=== PATIENT | female | born 1990 | race Caucasian/White ===

== ENCOUNTER 2017-04-18 09:45 | Inpatient (IN) | payer OTHER ==
[~2017-04-18 09:45] MED LIST: Docusate Sod/Senna PO; PERC5TAB12 PO; PREN1TAB30
--- NOTE | 2017-06-17 19:44 | HHI.HP ---
HPI Chief Complaint scheduled elective repeat at term; pre-op H&P, surgery scheduled Date Seen: Jun 17, 2017 Time Seen: 19:30 Travel History International Travel<30 Days: No Contact w/Intl Traveler<30Days: No Known Affected Area: No History of Present Illness HPI 27 yo with LMP1, EDC 06/25/17 by LMP c/w 18 week sonogram, will present for scheduled repeat delivery due to history of . Pt' s has been uncomplicated, fetus is male. Patient has a significant past history of prior complicated by infant with achondroplasia, her daughter "Daphney" who was delivered via after arrest of descent after >2 hours of pushing, born July 2014. Patient has no major complaints, minor pelvic pressure and cramps, no vaginal bleeding, no leakage of fluid, no regular contractions, endorses good movement, pain 1/10 minor pelvic pressure. Para: 1 : 1 Last Menstrual Period: Sep 18, 2016 Miscarriage: 2 : 0 History Past Medical History Narrative Medical denies Obstetric History Obstetric History G1 = SAB at 8 wks, 02/2013 G2 = SAB at 11 wks 09/2013 G3 = FT CD arrest of descent, 7#11oz female "Daphney", achondroplasia, born 2013 G4 = current, male, for repeat Past Surgical History Narrative Surgical primary low transverse 07/2014 tonsillectomy as child Family History Narrative Family History prior child born with achondroplasia; no known family history Social History Alcohol Use: No Tobacco Use: No Substance Abuse: No Allergies-Medications (Allergen,Severity, Reaction): Coded Allergies: Sulfa (Verified Allergy, Severe, UNKNOWN, 08/05/14) Review of Systems General / Constitutional: Weight Gain, No: Fever, Chills, Other Eyes: No: Diploplia, Blurred Vision, Visual changes, Pain, Photophobia HENT: No: Headaches, Vertigo, Lightheadedness Cardiovascular: No: Irregular Rhythm, Chest Pain or Discomfort, Palpitations, Tachycardia, Syncope, Varicosities, Edema, Cyanosis Respiratory: No: Cough, Short of Breath, Other Gastrointestinal: No: Nausea, Vomiting, Diarrhea Genitourinary: Pelvic Pain (mild pressure related to ), No: Decreased Urinary Output, Oliguria Musculoskeletal: No: Limited ROM, Weakness, Cramping, Edema, Pain Skin: No Rash, No Itching, No Dryness, No Lumps, No Change in Pigmentation, No Change in Nails, No Alopecia, No Lesions Neurologic: No: Weakness, Dizziness, Syncope, Focal Abnormalities, Coordination Problem, Headache, Slurred Speech, Seizures Psychiatric: No: Depression, Suicidal Ideations, Homicidal Ideation Endocrine: No: Heat Intolerance, Cold Intolerance, Polydipsia, Polyuria, Other Physical Exam Narrative GENERAL: Well-nourished, well-developed patient. SKIN: Warm and dry. HEAD: Normocephalic and atraumatic. EYES: No scleral icterus. No injection or drainage. ENT: No nasal drainage noted. Mucous membranes pink. Airway patent. NECK: Supple, trachea midline. No JVD. CARDIOVASCULAR: Regular rate and rhythm without murmurs, gallops, or rubs. RESPIRATORY: Breath sounds equal bilaterally. No accessory muscle use. BREASTS: deferred. ABDOMEN/GI: Abdomen soft, non-tender, bowel sounds present, no rebound, no guarding Gravid to [39] weeks size Fundal Height: [39] GENITOURINARY: deferred Presentation: [vtx] Membranes: [intact] Uterine Contractions: [irregular] FHT's: +FCA in office 150s EXTREMITIES: No cyanosis or edema. BACK: Nontender without obvious deformity. No CVA tenderness. NEUROLOGICAL: Awake and alert. Motor and sensory grossly within normal limits. Five out of 5 muscle strength in all muscle groups. Normal speech. 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
[2017-06-18] VITALS (27 sets, daily range): BP systolic 96–113; BP diastolic 59–75; PULSE 18–98; RESP 17–18; TEMP 97.3–98.2; O2SAT 100
[2017-06-18] MEDS ORDERED: CITRIC ACID-SODIUM CITRATE LIQ 30 ML UDC PO SCH (06:15)
[2017-06-18] MEDS ORDERED: ceFAZolin 2 GM PREMIX 50 ML IV SCH (06:15)
[2017-06-18] MEDS ORDERED: LACTATED RINGER'S 1000 ML IV SCH (06:15)
[2017-06-18] MEDS ORDERED: LACTATED RINGER'S 1000 ML IV ONE (06:15)
[2017-06-18 06:49] LABS: BLOOD, URINE NEG (NEG); GLUCOSE,URINE NEG (NEG); KETONE, URINE NEG (NEG); NITRITE,URINE NEG (NEG); SQUAMOUS EPITHELIAL CELL URINE 1 /hpf (0-5); URINE COLOR YELLOW (YELLW/STRAW)
[2017-06-18 06:55] LABS: COMMENT (UR) CULT NOT INDICATED; CULTURE IF INDICATED CULT NOT INDICATED
[2017-06-18] MEDS ORDERED: OXYTOCIN 10 UNIT/ML AMP ONE (07:06)
--- NOTE | 2017-06-18 08:15 | PD.OB.DELI ---
Procedure Note Section Procedure Pre Op Diagnosis: (1) Labor and delivery indication for care or intervention (2) History of delivery (3) Rh negative status during Post Op Diagnosis: (1) S/P repeat low transverse (2) Labor and delivery indication for care or intervention (3) History of delivery (4) Rh negative status during Performed by Vilma Lepe Procedure: Repeat Low Transverse Sec Indication for delivery: Desired elective repeat Informed consent obtained: For anesthesia, For procedure Confirmed correct: Patient, Procedure, Site, Time-out taken Anesthesia: Spinal Medication prior to procedure: As documented in eMAR Monitoring during procedure: Blood pressure monitoring, 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, Pulse oximetry Urinary catheter: Inserted using sterile technique, To dependent drainage, ml urine output (700) Sterile preparation: Duraprep, In usual fashion, With drapes to expose affected area Position: Supine with wedge to right side Operative Features Skin Incision: Pfannenstiel Uterine Incision: Low transverse w/knife / scissors Membranes Ruptured: Artificially, Amount of liquid (copious), Appearance of fluid (clear) Presentation: Vertex Delivery of : Uneventful Infant: Male One Minute : 8 Five Minute : 8 Weight: pending Status of : Viable, Cord blood, Nursery present Placenta delivered: Intact Medications: Antibiotics (Ancef 2g IV preop) Estimated blood loss: 700 mL Procedure tolerated: Well Maternal Condition: Stable Condition: Stable ( with good cry and tone but O2 sat lower than expected, being taken to NICU for monitoring/transition) Procedure in detail see dictated op note for full details Vilma Lepe MD Jun 18, 2017 08:15
[2017-06-18] MEDS ORDERED: ONDANSETRON HCL 4 MG/2 ML VIAL ONE (08:20)
[2017-06-18] MEDS ORDERED: MORPHINE SULFATE PF 10 MG/10 ML VIAL ONE (08:20)
[2017-06-18] MEDS ORDERED: OXYTOCIN 30 UNITS-500ML PREMIX 500 ML IV ONE (08:30)
[2017-06-18] MEDS ORDERED: ZOLPIDEM TARTRATE 5 MG TAB PO PRN (08:30)
[2017-06-18] MEDS ORDERED: ACETAMINOPHEN 325 MG TAB PO PRN (08:30)
[2017-06-18] MEDS ORDERED: ONDANSETRON HCL 4 MG/2 ML VIAL IV PUSH PRN (08:30)
[2017-06-18] MEDS ORDERED: SODIUM CHLORIDE 0.9% FLUSH 10 ML FLUSH IV FLUSH PRN (08:30)
[2017-06-18] MEDS ORDERED: ACETAMINOPHEN 1000 MG/100 ML VIAL IV ONE ×2 (08:30→08:40)
[2017-06-18] MEDS ORDERED: KETOROLAC TROMETHAMINE 60 MG/2 ML (IM) VIAL IM PRN (08:30)
[2017-06-18] MEDS ORDERED: SIMETHICONE 80 MG CHEWABLE TAB PO PRN (08:30)
[2017-06-18] MEDS ORDERED: oxyCODONE/ACETAMINOPHEN 5 MG/325 MG TAB PO PRN (08:30)
[2017-06-18 09:50] LABS: AUTOMATED NEUTROPHIL # 6.3 TH/MM3 (1.8-7.7); BASOPHIL % 0.5 % (0.0-2.0); EOSINOPHIL # 0.1 TH/MM3 (0-0.4); EOSINOPHIL % 0.6 % (0.0-4.0); HEMATOCRIT 30.6 % (35.0-46.0); LYMPH % 18.2 % (9.0-44.0); LYMPHOCYTE # 1.5 TH/MM3 (1.0-4.8); MEAN CELL VOLUME 89.1 FL (80.0-100.0); MEAN CORPUSCULAR HEMOGLOBIN 29.6 PG (27.0-34.0); MEAN CORPUSCULAR HGB CONC 33.2 % (32.0-36.0); MONO % 6.1 % (0.0-8.0); NEUT % 74.6 % (16.0-70.0); RED BLOOD COUNT 3.44 MIL/MM3 (4.00-5.30); WHITE BLOOD COUNT 8.5 TH/MM3 (4.0-11.0)
[2017-06-18 09:51] LABS: HEMO FLAGS AUTO DIFF; PLATELET COUNT 158 TH/MM3 (150-450)
[2017-06-18 09:56] LABS: PLATELET ESTIMATE SMEAR NORMAL (NORMAL); PLATELET MORPHOLOGY CLUMPED (NORMAL); SCAN/DIFF AUTO DIFF CONFIRMED
[2017-06-18] MEDS ORDERED: EPIDURAL-DO NOT ADMINISTER ANTICOAGULANTS PRN (10:15)
[2017-06-18] MEDS ORDERED: EPIDURAL-NALOXONE HCL 0.4 MG/ML AMP IV PRN (10:15)
[2017-06-18] MEDS ORDERED: EPIDURAL-DIPHENHYDRAMINE HCL 50 MG CAP PO PRN (10:15)
[2017-06-18] MEDS ORDERED: EPIDURAL-DIPHENHYDRAMINE HCL 50 MG/ML VIAL IV PUSH PRN (10:15)
[2017-06-18] MEDS ORDERED: EPIDURAL-NO SYSTEMIC NARCOTICS PRN (10:15)
[2017-06-18] MEDS ORDERED: LACTATED RINGER'S 1000 ML INJ 1,000 ML IV SCH (13:21)
[2017-06-18] MEDS ORDERED: OXYTOCIN 30 UNITS-500ML PREMIX 500 ML IV PRN (18:30)
[2017-06-18] MEDS: oxyCODONE/ACETAMINOPHEN 5 MG/325 MG TAB PO PRN (19:22)
[2017-06-18] MEDS: IBUPROFEN 600 MG TAB PO PRN (19:23)
[2017-06-18] MEDS: DOCUSATE SODIUM 50 MG/SENNA 8.6 MG TAB PO SCH (20:58)
[2017-06-18] MEDS: SODIUM CHLORIDE 0.9% FLUSH 10 ML FLUSH IV FLUSH SCH (21:00)
[2017-06-19 03:00] VITALS: BP 111/71; PULSE 71; RESP 18; TEMP 98.3
[2017-06-19] MEDS: IBUPROFEN 600 MG TAB PO PRN ×4 (05:24→22:41)
[2017-06-19] MEDS: oxyCODONE/ACETAMINOPHEN 5 MG/325 MG TAB PO PRN ×4 (05:24→22:41)
[2017-06-19 07:03] LABS: AUTOMATED NEUTROPHIL # 8.2 TH/MM3 (1.8-7.7); BASOPHIL # 0.1 TH/MM3 (0-0.2); BASOPHIL % 0.7 % (0.0-2.0); EOSINOPHIL # 0.1 TH/MM3 (0-0.4); EOSINOPHIL % 1.1 % (0.0-4.0); HEMATOCRIT 32.6 % (35.0-46.0); LYMPH % 17.5 % (9.0-44.0); LYMPHOCYTE # 1.9 TH/MM3 (1.0-4.8); MEAN CELL VOLUME 89.3 FL (80.0-100.0); MEAN CORPUSCULAR HEMOGLOBIN 29.9 PG (27.0-34.0); MEAN CORPUSCULAR HGB CONC 33.5 % (32.0-36.0); MONO % 6.7 % (0.0-8.0); RED BLOOD COUNT 3.65 MIL/MM3 (4.00-5.30)
[2017-06-19 07:04] LABS: HEMO FLAGS AUTO DIFF; PLATELET COUNT 134 TH/MM3 (150-450); WHITE BLOOD COUNT 10.4 TH/MM3 (4.0-11.0)
[2017-06-19 08:20] LABS: PLATELET ESTIMATE SMEAR LOW (NORMAL); PLATELET MORPHOLOGY CLUMPED (NORMAL)
[2017-06-19 08:21] LABS: SCAN/DIFF AUTO DIFF CONFIRMED
[2017-06-19 09:00] VITALS: BP 102/68; PULSE 73; RESP 18; TEMP 98.1
[2017-06-19] MEDS: DOCUSATE SODIUM 50 MG/SENNA 8.6 MG TAB PO SCH ×2 (09:35→21:00)
--- NOTE | 2017-06-19 11:28 | HHI.OB ---
Subjective Post Operative Day: 1 Remarks doing well post repeat section child in NICU no maternal issues Objective Vitals/I&O Vital Signs Date Time Temp Pulse Resp B/P Pulse Ox O2 Delivery O2 Flow Rate FiO2 06/19/17 09:00 98.1 73 18 102/68 06/19/17 03:00 71 18 111/71 06/19/17 03:00 98.3 06/18/17 23:00 96/59 06/18/17 23:00 98.0 65 18 06/18/17 21:00 97.3 18 06/18/17 21:00 76 110/74 06/18/17 21:00 18 06/18/17 15:00 98.2 73 17 113/71 06/18/17 14:15 17 06/18/17 13:35 18 Result Diagram: 06/19/17 0530 Objective Remarks GENERAL: Well-nourished, well-developed patient. CARDIOVASCULAR: Regular rate and rhythm without murmurs, gallops, or rubs. RESPIRATORY: Breath sounds equal bilaterally. No accessory muscle use. ABDOMEN/GI: Abdomen soft, non-tender, bowel sounds present. Incision: Clean, dry and intact. Fundus: Firm, non-tender at umbilicus. GENITOURINARY: Light to moderate bleeding. EXTREMITIES: No cyanosis or edema, non-tender, without signs of DVT. Medications and IVs Current Medications Medications (Trade) Dose Ordered Sig/Champ Route Start Time Stop Time Status Last Admin (NS Flush) 2 ml BID IV FLUSH 06/18/17 09:00 (NS Flush) 2 ml UNSCH PRN IV FLUSH 06/18/17 08:30 (Mylicon Chew) 80 mg QID PRN PO 06/18/17 08:30 (Tylenol) 650 mg Q6H PRN PO 06/18/17 08:30 (Motrin) 600 mg Q6H PRN PO 06/18/17 08:30 06/19/17 05:24 (Percocet 5-325 Mg) 1 tab Q4H PRN PO 06/18/17 08:30 06/19/17 05:24 (Percocet 5-325 Mg) 2 tab Q4H PRN PO 06/18/17 08:30 (Jesica-Colace) 1 tab Q12HR PO 06/18/17 21:00 06/19/17 09:35 (Ambien) 5 mg HS PRN PO 06/18/17 08:30 (M-M-R Ii Inj) 0.5 ml ONCE ONCE SQ 06/19/17 16:00 06/19/17 16:01 (Boostrix Inj) 0.5 ml ONCE ONCE IM 06/19/17 16:00 06/19/17 16:01 (Zofran Inj) 4 mg Q6H PRN IV PUSH 06/18/17 08:30 Assessment/Plan Problem List: (1) Labor and delivery indication for care or intervention (2) History of delivery (3) Rh negative status during Assessment and Plan in NICU and mom there at this time routine POD 1 expectations re evaluate in am Discharge Planning routine for 2-3 d PP Tiffanie Smith MD Jun 19, 2017 11:28
[2017-06-19] MEDS ORDERED: MEASLES, MUMPS, RUBELLA VACCINE 0.5 ML VIAL SQ ONE (16:00)
[2017-06-19] MEDS ORDERED: DIPHTH/TETANUS/ACEL PERTUSSIS (BOOSTER) 0.5 ML VIAL/PFS IM ONE (16:00)
[2017-06-19 19:10] VITALS: BP 96/61; PULSE 73; RESP 20; TEMP 98.4; O2SAT 98
[2017-06-20] MEDS: IBUPROFEN 600 MG TAB PO PRN ×4 (04:55→23:24)
[2017-06-20] MEDS: oxyCODONE/ACETAMINOPHEN 5 MG/325 MG TAB PO PRN ×4 (04:55→23:23)
--- NOTE | 2017-06-20 07:57 | HHI.OB ---
Subjective Post Operative Day: 2 Remarks pt wants to stay , baby in NICU, +BM, ambulating Objective Vitals/I&O Vital Signs Date Time Temp Pulse Resp B/P Pulse Ox O2 Delivery O2 Flow Rate FiO2 06/19/17 19:10 98.4 73 20 96/61 98 06/19/17 09:00 98.1 73 18 102/68 Result Diagram: 06/19/17 0530 Objective Remarks GENERAL: Well-nourished, well-developed patient. CARDIOVASCULAR: Regular rate and rhythm without murmurs, gallops, or rubs. RESPIRATORY: Breath sounds equal bilaterally. No accessory muscle use. ABDOMEN/GI: Abdomen soft, non-tender, bowel sounds present. Incision: Clean, dry and intact. Fundus: Firm, non-tender at umbilicus. GENITOURINARY: Light to moderate bleeding. EXTREMITIES: No cyanosis or edema, non-tender, without signs of DVT. Medications and IVs Current Medications Medications (Trade) Dose Ordered Sig/Champ Route Start Time Stop Time Status Last Admin (NS Flush) 2 ml BID IV FLUSH 06/18/17 09:00 (NS Flush) 2 ml UNSCH PRN IV FLUSH 06/18/17 08:30 (Mylicon Chew) 80 mg QID PRN PO 06/18/17 08:30 (Tylenol) 650 mg Q6H PRN PO 06/18/17 08:30 (Motrin) 600 mg Q6H PRN PO 06/18/17 08:30 06/20/17 04:55 (Percocet 5-325 Mg) 1 tab Q4H PRN PO 06/18/17 08:30 06/20/17 04:55 (Percocet 5-325 Mg) 2 tab Q4H PRN PO 06/18/17 08:30 (Jesica-Colace) 1 tab Q12HR PO 06/18/17 21:00 06/19/17 09:35 (Ambien) 5 mg HS PRN PO 06/18/17 08:30 (Zofran Inj) 4 mg Q6H PRN IV PUSH 06/18/17 08:30 Assessment/Plan Problem List: (1) Labor and delivery indication for care or intervention (2) History of delivery (3) Rh negative status during (4) delivery delivered Assessment and Plan in NICU routine POD 2 expectations re evaluate in am Discharge Planning routine for 2-3 d PP Attending Attestation pt seen by me Jaja Mclean MD Jun 20, 2017 07:57
[2017-06-20 08:20] VITALS: BP 111/71; PULSE 73; RESP 18
--- NOTE | 2017-06-20 11:05 | MP ---
cc: CONCEPCIÓN TSANG M.D. DATE OF SURGERY: 06/18/2017 PREOPERATIVE DIAGNOSIS 1. Garsia intrauterine at 39 weeks. 2. History of delivery for elective repeat. 3. Rh negative status during . POSTOPERATIVE DIAGNOSIS 1. Garsia intrauterine at 39 weeks. 2. History of delivery for elective repeat. 3. Rh negative status during . 4. Post-op day zero. INDICATIONS Ronda Ross is a 27-year-old, 4, now para 2-0-2-2 who was seen and evaluated throughout her with only complication of history of prior delivery. The patient desired elective repeat at term and as such she was scheduled. PROCEDURE PERFORMED Repeat low transverse delivery. SURGEON Concepción Tsang MD ANESTHESIA Spinal. ESTIMATED BLOOD LOSS 700 mL. IV FLUID REPLACEMENT 1200 mL. URINE OUTPUT 700 mL of clear urine draining in the Aguilar bag at the end of the procedure. PROPHYLAXIS SCDs were on and functioning throughout the entire case. Ancef 2 grams IV was given preoperatively. SPECIMEN None. INTRAOPERATIVE FINDINGS Include a vigorous viable male infant with Apgars of 8 and 8. weight is pending at this time. Amniotic fluid was clear and copious. Normal uterus, bilateral fallopian tubes and ovaries. Minimal scar tissue in the peritoneal cavity. Infant did have some mild respiratory distress after delivery with lower than expected oxygen saturation. He will be taken to the NICU for transition and monitoring at this time. Otherwise he is doing well. PROCEDURE IN DETAIL After reviewing the informed consent the patient was taken to the operating suite where a timeout was performed to identify the patient, the planned procedure and any known allergies to drugs or drug products. The patient was then placed in a sitting up position on the operating table and spinal anesthesia was administered without difficulty and found to be adequate. The patient was then gently lowered into dorsal supine position with a bump under her right side. The abdomen and perineum were prepped and draped in normal sterile fashion. A Aguilar catheter was placed using sterile technique. A Pfannenstiel type skin incision was then made with the scalpel and carried down to the underlying layer of fascia with the Bovie. Fascia was incised in the midline and incision was extended sharply with Call scissors. The superior aspect of the fascial incision was grasped, elevated with Arnaldo clamps and rectus muscles were dissected off sharply both inferiorly and superiorly. The rectus muscles were then in the midline. The peritoneum was identified and entered bluntly. The incision was extended superiorly and inferiorly with good visualization of the intra-abdominal contents. A bladder blade was placed. A bladder flap was not made. A low transverse uterine incision was made with the scalpel. Incision was extended bluntly. The amniotic sac was ruptured with clear fluid noted. The infant's head was grasped, flexed, and elevated out through the incision. With gentle maneuvering the rest of the 's body easily delivered. The was immediately crying and pink upon delivery. The cord was doubly clamped and cut. The was handed off to the awaiting nursery staff. Cord blood sample was taken. Placenta was delivered spontaneously with gentle cord traction and fundal massage. Uterus was exteriorized, cleared of all clots and debris with sterile moist lap sponges. The hysterotomy was repaired in a double layer, first in a running locking layer with #1 chromic and then an imbricating layer. Excellent hemostasis was noted. The posterior cul-de-sac was then irrigated copiously with warm sterile saline. The uterus was returned to the abdomen. Additional irrigation with suction was performed. The peritoneum was closed in a running layer with 2-0 chromic. The fascia was closed in a running layer with #1 Vicryl. The subcutaneous tissue was irrigated copiously and hemostasis was ensured with the Bovie. The skin was closed in a subcuticular fashion with 4-0 Monocryl. The skin was cleaned and dried and a standard dressing was placed. The procedure concluded at this point. The patient tolerated the procedure well without complication. DISPOSITION The patient's estimated length of stay is 2-3 postoperative days. The infant is NICU status for now due to some respiratory issues but I expect he will be transitioned to nursery status later today. MD PEG Chatterjee/ALPESH /8:15 AM /10:46 AM FAMILIA
[2017-06-20 23:20] VITALS: BP 102/58; PULSE 75; RESP 18
[2017-06-20] MEDS: DOCUSATE SODIUM 50 MG/SENNA 8.6 MG TAB PO SCH (23:24)
[2017-06-21] MEDS: IBUPROFEN 600 MG TAB PO PRN ×2 (07:26→17:44)
[2017-06-21] MEDS: oxyCODONE/ACETAMINOPHEN 5 MG/325 MG TAB PO PRN ×3 (07:26→17:44)
[2017-06-21 08:24] VITALS: BP 128/87; PULSE 75; RESP 16; TEMP 97.9
[2017-06-21] MEDS: SODIUM CHLORIDE 0.9% FLUSH 10 ML FLUSH IV FLUSH SCH (08:37)
[2017-06-21] MEDS: DOCUSATE SODIUM 50 MG/SENNA 8.6 MG TAB PO SCH (11:36)
--- NOTE | 2017-06-21 11:48 | HHI.OB ---
Subjective Post Operative Day: 3 Remarks doing well, +BM, baby in NICU, Objective Vitals/I&O Vital Signs Date Time Temp Pulse Resp B/P Pulse Ox O2 Delivery O2 Flow Rate FiO2 06/21/17 08:24 97.9 75 16 128/87 06/20/17 23:20 75 18 102/58 06/20/17 23:20 75 18 102/58 Result Diagram: 06/19/17 0530 Objective Remarks GENERAL: Well-nourished, well-developed patient. CARDIOVASCULAR: Regular rate and rhythm without murmurs, gallops, or rubs. RESPIRATORY: Breath sounds equal bilaterally. No accessory muscle use. ABDOMEN/GI: Abdomen soft, non-tender, bowel sounds present. Incision: Clean, dry and intact. Fundus: Firm, non-tender at umbilicus. GENITOURINARY: Light to moderate bleeding. EXTREMITIES: No cyanosis or edema, non-tender, without signs of DVT. Medications and IVs Current Medications Medications (Trade) Dose Ordered Sig/Champ Route Start Time Stop Time Status Last Admin (NS Flush) 2 ml BID IV FLUSH 06/18/17 09:00 (NS Flush) 2 ml UNSCH PRN IV FLUSH 06/18/17 08:30 (Mylicon Chew) 80 mg QID PRN PO 06/18/17 08:30 06/21/17 11:36 (Tylenol) 650 mg Q6H PRN PO 06/18/17 08:30 (Motrin) 600 mg Q6H PRN PO 06/18/17 08:30 06/21/17 07:26 (Percocet 5-325 Mg) 1 tab Q4H PRN PO 06/18/17 08:30 06/21/17 11:36 (Percocet 5-325 Mg) 2 tab Q4H PRN PO 06/18/17 08:30 (Jesica-Colace) 1 tab Q12HR PO 06/18/17 21:00 06/21/17 11:36 (Ambien) 5 mg HS PRN PO 06/18/17 08:30 (Zofran Inj) 4 mg Q6H PRN IV PUSH 06/18/17 08:30 Assessment/Plan Problem List: (1) Labor and delivery indication for care or intervention (2) History of delivery (3) Rh negative status during (4) delivery delivered Assessment and Plan in NICU routine POD 3 Discharge Planning today Attending Attestation pt seen by Jaja Dominguez MD Jun 21, 2017 11:48
[2017-06-21] MEDS ORDERED: SENN1TAB PO (12:07)
[2017-06-21] MEDS ORDERED: OXYC1TAB63 PO (12:07)
[2017-06-21] MEDS ORDERED: IBUP-232 PO (12:07)
--- NOTE | 2017-06-21 12:07 | HHI.DCPOC ---
Discharge Care Plan Your Health Problems Are: Pelvic pain Report Symptoms to Your Doctor -Temperature above 100.5 degrees -Redness, of incision or excessive or foul smelling drainage -Unusual pain or calf pain -Increased vaginal bleeding -Painful or difficulty urinating -Feelings of extreme sadness or anxiety after 2 weeks Goals to Promote Your Health * To prevent worsening of your condition and complications * To maintain your health at the optimal level Directions to Meet Your Goals Take your medications as prescribed Follow your dietary instruction Follow activity as directed Ensure plenty of rest for recovery Drink fluids for hydration Keep your appointments as scheduled Take your immunizations and boosters as scheduled If your symptoms worsen call your PCP, if no PCP go to Urgent Care Center or Emergency Room Smoking is Dangerous to Your Health. Avoid second hand smoke Call the 24-hour crisis hotline for domestic abuse at Jaja Mclean MD Jun 21, 2017 12:07
== END 2017-06-21 20:16 | disposition home or self-care (01) | DRG 766 ==
LOC: H2EB 06-18 05:49 → H1EA 06-18 09:40
PROVIDERS: ADMIT Obstetrics & Gynecology; ATTEND Obstetrics & Gynecology
PROC: 10D00Z1 Extraction of Products of Conception, Low, Open Approach (ICD-10-PCS; principal; 2017-06-18)
DX: O34.211 Maternal care for low transverse scar from previous cesarean delivery (principal); O26.893 Other specified pregnancy related conditions, third trimester; Z37.0 Single live birth; Z3A.39 39 weeks gestation of pregnancy; Z67.91 Unspecified blood type, Rh negative; O99.824 Streptococcus B carrier state complicating childbirth
CPT/HCPCS: 59025; 81001; 85025; 85461; 86077; 86850; 86870; 86900; 86901; 86920; 86922; 90384; 90715; J0131; J0690; J2274; J2405; J2590; J2790; J7120